=== PATIENT | female | born 1980 ===

== ENCOUNTER 2024-12-31 03:30 | Outpatient (CLI) | payer BC, SELFPAY ==
[2024-12-31 07:45] LABS: Abs Immature Grans 0.03 10^3/uL (0.0-0.06); Absolute Basophil Count 0.04 10^3/uL (0.0-0.2); Absolute Eosinophil Count 0.24 10^3/uL (0.0-0.7); Absolute Lymphocyte Count 0.43 10^3/uL (1.2-3.4); Absolute Monocyte Count 0.39 10^3/uL (0.1-0.8); Absolute Neutrophil Count 2.39 10^3/uL (1.2-6.7); Basophils % 1.1 %; Eosinophils % 6.8 %; HCT 38.6 % (36.0-46.0); Immature Grans % 0.9 %; Lymphocytes % 12.2 %; MCH 29.1 pg (27.0-33.0); MCHC 33.7 % (32.0-36.0); MCV 86 fL (80-95); MPV 10.1 fL (8.0-11.0); Monocytes % 11.1 %; Neutrophils % 67.9 %; Platelet Count 218 10^3/uL (130-400); RBC 4.47 10^6/uL (3.93-5.22); RDW 18.1 % (11.7-14.6); RDW-SD 57.3 fL; WBC 3.52 10^3/uL (4.4-10.8)
[2024-12-31 08:29] LABS: ALT 21 U/L (14-59); AST 14 U/L (15-37); Albumin 3.9 g/dL (3.4-5.0); Alkaline Phosphatase 56 U/L (46-116); Anion Gap 7.2 mmol/L (3-11); BUN 13 mg/dL (7-18); Bilirubin, Total 0.4 mg/dL (0.2-1.0); CO2 28.8 mmol/L (21.0-32.0); CREATININE 0.7 mg/dL (0.55-1.02); Calcium 8.7 mg/dL (8.5-10.1); Chloride 103 mmol/L (98-107); Estimated GFR 110.67 (mL/min/1.73m2); Ferritin 95 ng/mL (8-252); Glucose 90 mg/dL (74-106); Iron 87 ug/dL (50-170); Potassium 3.6 mmol/L (3.5-5.1); Sodium 139 mmol/L (136-145); Total Iron Binding Capacity 305 ug/dL (250-450); Total Protein 7.6 g/dL (6.4-8.2); Transferrin Sat 29 % (15-50)
[2024-12-31 09:10] LABS: LDH 161 U/L (81-234)
== END 2024-12-31 03:31 | disposition home or self-care (01) ==
LOC: LBO 03:30
PROVIDERS: Visit Provider Internal Medicine Hematology & Oncology
DX: C82.13 Follicular lymphoma grade II, intra-abdominal lymph nodes (principal)
CPT/HCPCS: 36415; 80053; 82728; 83540; 83550; 83615; 85025